=== PATIENT | female | born 1950 | race Caucasian/White ===

== ENCOUNTER 2022-03-19 07:53 | Emergency (ER) | payer MEDICARE, OTHER, SELFPAY ==
--- NOTE | ~2022-03-19 | XR_ITS ---
EXAMINATION: XR abdomen/kub 1V INDICATION: Left ureteral stone TECHNIQUE: Supine views of the abdomen were obtained on 2 radiographs. COMPARISON: CT from today FINDINGS: A 4 mm stone is seen at the expected location of the left ureterovesicular junction. There is a 7 mm stone in the lower pole of the right kidney. Embolization clips are noted in the left upper quadrant. There are also surgical changes at the level of the stomach. IMPRESSION: 1. 4 mm stone at the expected location of the left ureterovesicular junction. 2. Right nephrolithiasis. Reviewed, dictated and finalized at location A.
--- NOTE | ~2022-03-19 | CT_ITS ---
EXAMINATION: CT brain wo con DATE: 03/19/2022 08:38 INDICATION: Dizziness. TECHNIQUE: Computed tomography (CT) of the head was performed without intravenous contrast. The mA wa s adjusted according to patient size. Iterative reconstruction technique was employed. The dose-lengt h product was 605.33 mGy-cm. COMPARISON: None FINDINGS: There is an old infarct in right frontoparietal region. There is no intracranial hemorrhage , acute infarction, or abnormal intracranial mass lesion. The ventricles are normal in size. There ar e likely changes of ocular lens replacement surgeries. The mastoid air cells are normal. IMPRESSION: 1. 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 Reviewed, dictated and finalized at location A.
--- NOTE | ~2022-03-19 | CT_ITS ---
EXAMINATION: CT abdomen pelvis wo con DATE: 03/19/2022 08:38 INDICATION: Left flank pain and hematuria TECHNIQUE: Computed tomography (CT) of the abdomen and pelvis was performed without intravenous contr ast. Automated exposure control and iterative reconstruction technique were employed. The dose-length product was 151.70 mGy-cm. COMPARISON: 09/01/2013 FINDINGS: At least moderate severity emphysema at the lung bases. Visualized inferior heart is normal. Atherosc lerotic coronary artery calcification. Minimal pericardial effusion. No pleural effusion. Postoperati ve changes of prior gastric bypass procedure including several surgical clips in the region of the ga stroesophageal junction and anterior to the neck of the pancreas. Surgical clips versus suture lines along the anterior margin of the liver and dehiscence of the subcutaneous fat overlying the midline s urgical wound at the upper abdomen. There are also few embolization coils at the hilum of the spleen which appears decreased in size and with a more irregular contour than on the prior study which may b e related to prior trauma, surgery or infarct. Calcified gallstones in the normal gallbladder with no wall thickening or pericholecystic inflammatory stranding to suggest acute cholecystitis. Liver, askew creas and bilateral adrenal glands are normal. 4 mm obstructing stone at the left ureterovesicular ju nction with mild left hydroureteronephrosis. 6 x 4 mm nonobstructing stone at the lower pole of the r ight kidney. Likely atherosclerotic calcification the fat along side the bilateral renal pelvises. Bl adder is normal. The uterus is not identified and has likely been surgically resected. Scattered c olonic diverticula without adjacent inflammatory change to suggest diverticulitis. No bowel obstructi on. No free intraperitoneal gas or fluid. No pathologically enlarged abdominal or pelvic lymphadenopa thy.. There is calcified atherosclerosis of the aorta and many of the other arteries. Mild thoracolum bar dextrocurvature with moderate to severe lumbar spondylosis. IMPRESSION: 1. Bilateral nephrolithiasis with 4 mm obstructing stone at the left ureterovesicular junction with m ild left hydroureteronephrosis. 2. Diverticulosis. 3. Postoperative changes in the abdomen and pelvis as detailed above. 4. Emphysema. Reviewed, dictated and finalized at location B. IMPRESSION: 1. Bilateral nephrolithiasis with 4 mm obstructing stone at the left ureteroves icular junction with mild left hydroureteronephrosis. 2. Diverticulosis. 3. Postoperative changes in the abdomen and pelvis as detailed above. 4. Emphysema.
--- NOTE | ~2022-03-19 | XR_ITS ---
EXAMINATION: XR chest 2V DATE: 03/19/2022 08:46 INDICATION: Weakness. Left flank pain. TECHNIQUE: Frontal and lateral views of the chest were obtained. COMPARISON: Chest 2 views 07/06/2013, CT abdomen and pelvis 03/19/2022 FINDINGS: The lungs are hyperexpanded, consistent with emphysema. No pleural effusion or pneumothorax . The heart size is normal. Pectus carinatum is noted. There are embolization coils in left upper chel drant. IMPRESSION: 1. Emphysema. Reviewed, dictated and finalized at location A. IMPRESSION: 1. Emphysema.
[2022-03-19 07:59] VITALS: BP 144/63; PULSE 86; RESP 16; TEMP 36.6; O2SAT 98
--- NOTE | 2022-03-19 08:09 | ECG_ITS ---
Measurements Intervals [place] Rate: 67 P: 80 WI: 148 QRS: 79 QRSD: 89 T: 70 QT: 411 QTc: 435 Interpretive Statements SINUS RHYTHM POOR R-WAVE PROGRESSION NO PREVIOUS ECG AVAILABLE FOR COMPARISON Electronically Signed On 03-19-2022 15:19:49 CDT by Liam Jimenez M.D.
[2022-03-19] MEDS: SODIUM CHLORIDE 0.9% IV 500 ML 999 ML IV CONT (08:16)
[2022-03-19] MEDS: ONDANSETRON INJ 4 MG/2 ML VIAL IV PUSH (08:16)
[2022-03-19] MEDS: MECLIZINE HCL 12.5 MG TABLET PO (08:16)
--- NOTE | 2022-03-19 08:21 | ED.BACK ---
HPI - Back Pain/Injury General Chief Complaint: Back Pain/Injury Stated Complaint: kidney pain Time Seen by Provider: 03/19/22 07:56 Source: patient, family and RN notes reviewed Mode of arrival: ambulatory Limitations: no limitations History of Present Illness HPI Narrative: This is a 71 year old female who presents for evaluation of left flank pain. Patient states she received her flu vaccination on Thursday. She has not felt well since Thursday. She has been having left flank pain that has gradually worsened with nausea. She also noticed blood when she wipes after urinating. She denies blood when she wipes after she has bowel movement . She denies fever or chills. She does report intermittent vertigo for weeks. She was diagnosed with ear infection at an urgent care after being evaluated for vertigo. She is complaining of spinning with movement now. She denies ear ache, rining her her ears or URI symptoms. Related Data Home Medications Medication Instructions Recorded Confirmed citalopram 20 mg tablet mg 03/19/22 lorazepam 0.5 mg tablet mg 03/19/22 Allergies Allergy/AdvReac Type Severity Reaction Status Date / Time SEAFOOD Allergy Unknown Anaphylaxis Uncoded 03/19/22 08:07 Review of Systems Review of Systems: All systems reviewed & are unremarkable except as noted in HPI and below Constitutional: Constitutional: Denies chills, Reports fatigue and Denies fever(s) Eyes: Eyes: Denies change in vision ENT: Reports vertigo, Denies nasal congestion and Denies sore throat Cardiovascular: Cardiovascular: Denies chest pain Respiratory: Respiratory: Denies chest congestion and Denies cough Gastrointestinal: Gastrointestinal: Denies diarrhea, Reports nausea and Denies vomiting Genitourinary: Genitourinary: Reports hematuria and Reports flank pain Musculoskeletal: Musculoskeletal: Reports back pain [facility] Past Medical History Medical History (Updated 03/19/22 @ 10:44 by Carito Moctezuma MD) Anxiety Peptic ulcer disease Surgical History Surgical History (Updated 03/19/22 @ 08:53 by Carito Moctezuma MD) History of appendectomy History of Alex-en-Y gastric bypass Social History Social History (Updated 03/19/22 @ 08:53 by Carito Moctezuma MD) Smoking status: Never smoker Alcohol intake: never Exam Const: General: alert Nutritional Appearance: thin Orientation/consciousness: patient oriented x3 Limitations: no limitations HENMT: Head: normal to inspection Ears: external ears normal and TM's normal bilaterally Face and sinus: normal facial exam Teeth and gingiva: dentition normal Throat: posterior oropharynx normal and uvula midline Eyes: Conjunctivae: conjunctivae normal Pupils: Equal, round and reactive pupils present EOM: EOMs intact bilaterally Chest: Chest palpation & inspection: normal inspection of the chest Resp: Effort & Inspection: normal respiratory effort Auscultation: clear to auscultation bilaterally Cardio: Rate: regular rate Rhythm: regular rhythm Heart sounds: no murmurs GI: GI Palp: Yes Soft to palpation, Yes Tenderness to palpation present (GI) (LUQ), No Guarding due to palpation present (GI) and No Rigid due to palpation Auscultation: normal bowel sounds Back/Spine/Pelvis: Back: no CVA tenderness Skin: General skin exam: normal color Rashes: no rashes Wounds: no wounds Neuro: General: patient oriented x3, moves all extremities and CN's II-XI intact bilaterally Cranial nerves: Yes Nystagmus not present Speech: normal speech Gait exam (Neuro): Normal gait present Extrem: General: normal to inspection Psych: Mental Status: mental status grossly normal Course Reevaluation(s) Reevaluation #1: Patient states she feels better and she would like to go home. I discussed diagnosed and follow up . She was given return precautions. I discussed labs and case with Dr. Neal of urology. HE agrees patient can go home with pain medications and fl
[2022-03-19 08:28] VITALS: PULSE 74
[2022-03-19 08:39] LABS: Alanine Aminotransferase 24 U/L (6-35); Albumin Level 4.5 g/dL (3.5-5.1); Alkaline Phosphatase 121 U/L (38-126); Anion Gap 11 mmol/L (8-16); Aspartate Amino Transferase 37 U/L (14-36); Bilirubin,Total 1.3 mg/dL (0.2-1.3); Blood Urea Nitrogen 31 mg/dL (7-17); Calcium 9.3 mg/dL (8.4-10.2); Carbon Dioxide 22 mmol/L (22-30); Chloride 104 mmol/L (98-107); Estimated CRCL calculation 23 ml/min; Estimated Glomerular Filt Rate 40; Glucose 95 mg/dL (65-110); Lipase 61 U/L (23-300); Potassium 4.7 mmol/L (3.4-5.0); Sodium 137 mmol/L (137-145)
[2022-03-19 08:40] LABS: Basophils Absolute Auto 0.1 K/mm3 (0.0-0.1); Basophils Percent Auto 0.4 % (0.2-1.2); Eosinophils Absolute Auto 0.5 K/mm3 (0-0.3); Hematocrit 38.4 % (37.0-47.0); Hemoglobin 13.2 g/dL (12.0-15.0); Immature Granulocyte Absolute 0.47 K/mm3 (0.00-0.031); Immature Granulocyte Percent A 3.1 % (0-0.5); Immature Platelet Fraction Pct 24.5 % (0.9-11.2); Lymphocytes Absolute Auto 0.96 K/mm3 (0.9-3.2); Lymphocytes Percent Auto 6.3 % (18.3-44.2); Mean Corpuscular HGB Conc 34.4 g/dl (32-36); Mean Corpuscular Hemoglobin 35.6 pg (26-34); Mean Corpuscular Volume 103.5 fl (80-100); Monocytes Absolute Auto 1.4 K/mm3 (0.1-0.6); Neutrophils Absolute Auto 11.9 K/mm3 (1.3-6.7); Neutrophils Percent Auto 78.2 % (45.5-73.1); Platelet Count Result 47 k/mm3 (150-375); Red Blood Count 3.71 M/mm3 (4.2-5.4); Red Cell Distribution Width 15.6 % (11.5-14.5); White Blood Count 15.2 K/mm3 (4.5-10.0)
[2022-03-19 08:50] LABS: Platelet Estimate Decreased (Adequate)
[2022-03-19 08:51] LABS: Acanthocytes 1+ (NORMAL); Anisocytosis 2+ (NORMAL); Helmet Cells 1+ (NORMAL); Ovalocytes 2+ (NORMAL); Tear Drop Cells 1+ (NORMAL)
[2022-03-19 08:52] LABS: Schistocytes None Seen (NORMAL)
[2022-03-19 08:54] LABS: Add Urine Microscopic? YES; Appearance Urine Clear (Clear); Bilirubin Urine Negative (Negative); Blood Urine 2+ (Negative); Color Urine Yellow (Yellow); Glucose Urine UA Negative (Negative); Ketones Urine Negative (Negative); Leukocyte Esterase Ur Negative LEU/UL (Negative); Mucus Urine Rare /lpf; Nitrate Urine Negative (Negative); Protein Urine Negative (Negative); Specific Grav Ur 1.014 (1.001-1.035); Squamous Epithelial Cell Urine Rare /hpf (Few); Urobilinogen Urine Negative mg/dL (<2.0); WBC Urine 0-3 /hpf
[2022-03-19] MEDS: MORPHINE SULFATE (*CRX) 2 MG/ML INJ IV PUSH (09:51)
== END 2022-03-19 10:58 | disposition home or self-care (01) ==
PROVIDERS: Emergency Provider General Practice; PCP Family Medicine
DX: N13.2 Hydronephrosis with renal and ureteral calculous obstruction (principal); R42 Dizziness and giddiness; F41.9 Anxiety disorder, unspecified; Z87.11 Personal history of peptic ulcer disease; Z98.84 Bariatric surgery status; K57.90 Diverticulosis of intestine, part unspecified, without perforation or abscess without bleeding; J43.9 Emphysema, unspecified; R94.31 Abnormal electrocardiogram [ECG] [EKG]
CPT/HCPCS: 36415; 70450; 71046; 74018; 74176; 80053; 81001; 83690; 85025; 85055; 93005; 96361; 96365; 96375; 99284; A9270; J0131; J2270; J2405; J7040

== ENCOUNTER 2022-08-16 01:22 | Inpatient (IN) | payer MEDICARE, OTHER, SELFPAY ==
[2022-08-16] VITALS (39 sets, daily range): BP systolic 98–123; BP diastolic 48–65; PULSE 84–117; RESP 16–29; TEMP 36.6–36.7; O2SAT 84–100; BMI 13.9
--- NOTE | ~2022-08-16 | XR_ITS ---
EXAMINATION: XR chest 1V portable DATE: 08/16/2022 03:24 INDICATION: Shortness of breath TECHNIQUE: frontal view of the chest was obtained. COMPARISON: Chest radiograph dated 03/19/2022 FINDINGS: Mild right apical pleural-parenchymal scarring. New increased interstitial pattern with bronchial wal l thickening in the left perihilar and lower lung zones. No focal airspace consolidation, pleural eff usion or pneumothorax. The cardiomediastinal silhouette is normal. Surgical clips in the upper abdome n. Mild lumbar dextrocurvature with mild spondylosis. IMPRESSION: 1. Increased interstitial opacities with bronchial wall thickening in the left perihilar and lower trang ng zones which could represent bronchitis/early pneumonia, asymmetric mild pulmonary edema or reactiv e airway disease/asthma. Reviewed, dictated and finalized at location A. BED OWNER OPERATOR IMPRESSION: 1. Increased interstitial opacities with bronchial wall thickening in the left perihilar and lower lung zones which could represent bronchitis/early pneumonia , asymmetric mild pulmonary edema or reactive airway disease/asthma.
--- NOTE | ~2022-08-16 | CT_ITS ---
EXAMINATION: CT abdomen pelvis wo con DATE: 08/16/2022 03:21 INDICATION: Right flank pain TECHNIQUE: Computed tomography (CT) of the abdomen and pelvis was performed without intravenous contr ast. Automated exposure control and iterative reconstruction technique were employed. The dose-length product was 158.80 mGy-cm. COMPARISON: CT dated 03/19/2022 FINDINGS: Emphysema. And new bronchial dilation with wall thickening and associated tree-in-bud opacities in th e visualized lingula, right middle and bilateral lower lobes consistent with pneumonia. Heart size is normal. Small pericardial effusion. Atherosclerotic coronary artery calcific lesion. Mild pectus exc avatum. Postoperative changes at the gastroesophageal junction metallic likely embolization coils at the splenic hilum. Liver, pancreas and bilateral adrenal glands are normal. Several gallstones within the gallbladder which frankly dilated and without wall thickening or pericholecystic inflammatory st randing to suggest acute cholecystitis. 8 mm nonobstructing stone at a lower pole calyx of the right kidney. Atherosclerotic calcification is at the bilateral renal estuardo. Bladder is normal. The uterus i s not identified and has likely been surgically resected. Likely right hemicolectomy with ileocolic a nastomosis in the central and lower abdomen. No dilated bowel to suggest obstruction.. No free intrap eritoneal gas or fluid. No pathologically enlarged abdominal or pelvic lymphadenopathy. There is calc ified atherosclerosis of the aorta and bilateral iliac arteries. Chronic postoperative large defect i n the midline anterior abdominal wall fat. Mild thoracolumbar dextrocurvature with moderate to severe lumbar spondylosis. IMPRESSION: 1. Bronchial wall thickening and dilation with tree-in-bud opacities in bilateral lower lungs consist ent with pneumonia. 2. 8 mm nonobstructing right renal stone. 3. Cholelithiasis. Reviewed, dictated and finalized at location A. CUTTER IMPRESSION: 1. Bronchial wall thickening and dilation with tree-in-bud opacities in bilater al lower lungs consistent with pneumonia. 2. 8 mm nonobstructing right renal stone. 3. Cholelithiasis.
--- NOTE | 2022-08-16 02:28 | ECG_ITS ---
Measurements Intervals [place] Rate: 95 P: 86 [place]: 131 QRS: 83 QRSD: 88 T: 72 QT: 350 QTc: 440 Interpretive Statements SINUS RHYTHM RIGHT ATRIAL ENLARGEMENT LEFT ATRIAL ENLARGEMENT BORDERLINE R WAVE PROGRESSION, ANTERIOR LEADS BORDERLINE ST ABNORMALITY- INFERIOR LEADS BASELINE ARTIFACT- I, AVL, V4-V6 COMPARED TO ECG 03/19/2022 08:26:16 NO SIGNIFICANT CHANGES Electronically Signed On 08-16-2022 6:56:14 CONSERVATION ASSISTANT by Qasim Quispe D.O.
[2022-08-16] MEDS: ONDANSETRON INJ 4 MG/2 ML VIAL IV PUSH ×2 (02:41→05:23)
[2022-08-16] MEDS: MORPHINE SULFATE (*CRX) 4 MG/ML INJ IV PUSH (02:42)
[2022-08-16] MEDS: IPRATROPIUM BR 0.02% INH SOLN 0.5 MG/2.5 ML VIAL INHALATION ×5 (02:47→19:35)
[2022-08-16] MEDS: ALBUTEROL SULFATE NEB 2.5 MG/3 ML INH INHALATION ×5 (02:47→19:35)
[2022-08-16 02:53] LABS: Basophils Absolute Auto 0.1 K/mm3 (0.0-0.1); Basophils Percent Auto 0.8 % (0.2-1.2); Eosinophils Absolute Auto 0.1 K/mm3 (0-0.3); Eosinophils Percent Auto 0.5 % (0-4.4); Hemoglobin 12.5 g/dL (12.0-15.0); Immature Granulocyte Absolute 0.26 K/mm3 (0.00-0.031); Immature Granulocyte Percent A 2.5 % (0-0.5); Immature Platelet Fraction Pct 20.3 % (0.9-11.2); Lymphocytes Absolute Auto 0.75 K/mm3 (0.9-3.2); Lymphocytes Percent Auto 7.1 % (18.3-44.2); Mean Corpuscular HGB Conc 34.7 g/dl (32-36); Mean Corpuscular Hemoglobin 35.3 pg (26-34); Mean Corpuscular Volume 101.7 fl (80-100); Mean Platelet Volume 13.9 fl (7.4-10.4); Monocytes Absolute Auto 1.2 K/mm3 (0.1-0.6); Monocytes Percent Auto 11.4 % (2.6-8.5); Neutrophils Absolute Auto 8.2 K/mm3 (1.3-6.7); Neutrophils Percent Auto 77.7 % (45.5-73.1); Platelet Count Result 111 k/mm3 (150-375); Red Blood Count 3.54 M/mm3 (4.2-5.4); Red Cell Distribution Width 16.5 % (11.5-14.5); White Blood Count 10.6 K/mm3 (4.5-10.0)
[2022-08-16 03:01] LABS: Prothrombin Time 13.1 Seconds (11.1-14.7)
[2022-08-16 03:05] LABS: Lactic Acid Reflex 1.2 mmol/L (0.7-2.0)
[2022-08-16 03:15] LABS: Alanine Aminotransferase 19 U/L (6-35); Albumin Level 3.9 g/dL (3.5-5.1); Alkaline Phosphatase 77 U/L (38-126); Anion Gap 6 mmol/L (8-16); Aspartate Amino Transferase 33 U/L (14-36); Bilirubin,Total 0.8 mg/dL (0.2-1.3); Blood Urea Nitrogen 20 mg/dL (7-17); Calcium 8.9 mg/dL (8.4-10.2); Carbon Dioxide 26 mmol/L (22-30); Chloride 98 mmol/L (98-107); Estimated CRCL calculation 50 ml/min; Estimated Glomerular Filt Rate > 60; Glucose 111 mg/dL (65-110); Lipase 25 U/L (23-300); Magnesium 1.8 mg/dL (1.6-2.3); Potassium 4.5 mmol/L (3.4-5.0); Sodium 130 mmol/L (137-145)
[2022-08-16 03:17] LABS: Troponin I 0.013 ng/mL (0.000-0.034)
--- NOTE | 2022-08-16 03:27 | ED.GENADULT ---
HPI - General Adult General Chief complaint: Urogenital-Female Stated complaint: Right flank pain, hx kidney stones Time Seen by Provider: 08/16/22 02:08 History of Present Illness HPI narrative: Patient is a 49-year-old female that presents the emergency department with chief complaint of flank pain and shortness of breath. Patient reports that she has history of kidney stones and reports that she started having flank pain for the last couple days and reports its been getting progressively worse incidentally the patient also reports the last several weeks has been having increasing shortness of breath. Patient reports has never been diagnosed with COPD but does report that she did previously smoke and quit smoking fairly recently. Patient denies fever reports that she has had a chronic dry cough patient denies chest pain patient reports symptoms are not improved by anything nor they worsened by anything. Related Data Home Medications Medication Instructions Recorded Confirmed citalopram 20 mg tablet mg 03/19/22 lorazepam 0.5 mg tablet mg 03/19/22 Allergies Allergy/AdvReac Type Severity Reaction Status Date / Time SEAFOOD Allergy Unknown Anaphylaxis Uncoded 08/16/22 01:32 Review of Systems Review of Systems: A 10 system review of systems was completed on the patient and is negative except for what is stated in the HPI. Nursing and ancillary documentation was reviewed. [facility] Past Medical History Medical History Anxiety Peptic ulcer disease Surgical History Surgical History History of appendectomy History of Alex-en-Y gastric bypass Social History Social History Smoking status: Never smoker Alcohol intake: never Exam Narrative: GENERAL: Well-appearing, well-nourished, and in no acute distress. HEAD: Normocephalic, atraumatic. EYES: PERRLA and EOMI. ENT: Nares clear, no rhinorrhea or epistaxis. Mucous membranes moist. NECK: Supple. CHEST: Clear to auscultation. No respiratory distress. HEART: Regular rate and rhythm. No murmur heard. Normal peripheral pulses. ABDOMEN: Soft, nontender, nondistended, normal active bowel sounds. Large scar present on the abdomen from previous surgeries EXTREMITIES: Normal range of motion. No edema. SKIN: Warm, dry, no rash. NEURO: No focal deficits. Alert and oriented x3. PSYCH: Normal mood and affect. Course Vital Signs Vital signs: Vital Signs Temperature 36.7 C 08/16/22 01:29 Pulse Rate 117 H 08/16/22 01:29 Respiratory Rate 20 08/16/22 01:29 Blood Pressure 103/56 L 08/16/22 01:29 Pulse Oximetry 91 08/16/22 01:29 Oxygen Delivery Room Air 08/16/22 01:29 Temperature 36.6 C 08/16/22 06:36 Pulse Rate 93 08/16/22 06:36 Respiratory Rate 24 H 08/16/22 06:36 Blood Pressure 114/57 L 08/16/22 06:36 Pulse Oximetry 93 08/16/22 06:36 Oxygen Delivery Nasal Cannula 08/16/22 04:02 Oxygen Flow Rate 3 08/16/22 04:02 Medical Decision Making [facility] Narrative Medical decision making narrative: Differential diagnosis includes intra-abdominal infection, kidney stones, COPD exacerbation, pneumothorax pneumonia Patient was moderately tachypneic upon arrival and was saturating down to 88 to 89% on room air which would improve with [address] scan of the abdomen pelvis showed no acute abnormality in the abdomen did show tree-in-bud appearance and the lung bases also evidence of emphysema. Laboratory studies were obtained which showed a white blood cell count of 10.6 electrolytes showed a sodium of 130 and a BUN of 20 and a creatinine of 0.5 troponin was less than 0.012 procalcitonin is 3.4 urinalysis showed 0-5 white blood cells in the urine and the patient was negative for COVID and influenza Chest x-ray interpreted by me showed evidence of
[2022-08-16 04:05] LABS: Bacteria Urine None Seen /hpf; Bilirubin Urine Negative (Negative); Blood Urine 3+ (Negative); Color Urine Dark Yellow (Yellow); Glucose Urine UA Negative (Negative); Ketones Urine 2+ mg/dL (Negative); Leukocyte Esterase Ur Negative LEU/UL (Negative); Nitrate Urine Negative (Negative); Protein Urine 1+ mg/dL (Negative); RBC Urine >100 /hpf (0-2); Specific Grav Ur 1.033 (1.001-1.035); Squamous Epithelial Cell Urine Occasional /hpf (Few); WBC Urine 0-5 /hpf
[2022-08-16 04:06] LABS: Influenza A QL RT-PCR Negative (Negative); Influenza B QL RT-PCR Negative (Negative); SARS-CoV-2 RNA PCR Negative
[2022-08-16 04:08] LABS: Appearance Urine Cloudy (Clear)
[2022-08-16 04:09] LABS: Add Urine Microscopic? YES
[2022-08-16 05:05] LABS: Procalcitonin 3.4 ng/mL
[2022-08-16 06:01] LABS: Troponin I < 0.012 ng/mL (0.000-0.034)
[2022-08-16] MEDS: methylPREDNISolone SOD SUCC 125 MG VIAL IV PUSH (06:35)
--- NOTE | 2022-08-16 07:44 | PM.IMHP ---
H&P: HPI History of Present Illness Date/Time: 08/16/22 07:44 Chief Complaint: Flank pain Narrative: Isidro Kaufman is a 71 yo female with COPD, anxiety, and prior history of kidney stones. She presented to the ED for evaluation of right flank pain. She reported sudden difficulty breathing this morning upon arising. She reports productive cough with phlegm type sputum and dyspnea at rest and with exertion. She denies fever, chills, diaphoresis, chest pain, abdominal pain, nausea, vomiting, anorexia, dizziness, or myalgias. She denies known sick contacts or changes in medications. She does endorse being forgetful at times and denies known lung disease. She does report smoking for 20-30 years and recently picking the habit back up with approximately 2 cigarettes per day. In the ED, vitals were HR 117, RR 24, BP 103/56, temp 36.7C, and spO2 dropped 84% on room air. Lab work was significant for mildly elevated WBC 10.6 with bandemia, sodium 130, procalcitonin 3.4, lactic acid 1.2 and otherwise unremarkable CBC or CMP. Influenza A/B and COVID19 were negative. UA was unremarkable. Chest x-ray shows increased interstitial opacities with bronchial wall thickening in the perihilar and lower lung raymundo suggestive of early pneumonia or bronchitis. CT abd/pelvis showed 8 mm nonobstructing right renal stone, tree-in-bud opacities suggestive of pneumonia and cholelithiasis without cholecystitis. She was treated with duonebs x2, morphine 4 mg IV x1, Zofran 4 mg IV x1, solumedrol 125 mg IV x1, IV Rocephin 1 gram and Azithromycin 500 mg IV x1. She was referred for observation and management of acute COPD exacerbation. Review of Systems Review of Systems: All systems reviewed & are unremarkable except as noted in HPI and below PMFSH Past Medical History Medical History (Updated 08/16/22 @ 12:47 by Gabriela Hess APRN) Anxiety COPD (chronic obstructive pulmonary disease) Gastric perforation Kidney stones Peptic ulcer disease Surgical History Surgical History (Updated 08/16/22 @ 12:47 by Gabriela Hess APRN) History of appendectomy History of Alex-en-Y gastric bypass S/P gastric surgery reconstructive surgery following perforation Family History Family History Father Cerebrovascular accident Myocardial infarction Social History Social History (Updated 08/16/22 @ 12:49 by Gabriela Hess APRN) Smoking status: Current every day smoker Tobacco type: cigarettes Additional smoking assessment comments: 20-30 pack year smoking history, restarted smoking recently 2 cigarette/day Alcohol intake: never Drinks per week: 0 Substance use: never Lack of Transportation: No Lack of Food: Never True Current Housing: I Have Housing Concerned About Future Housing: No Difficulty Paying Gas/Electric Bills: No Difficulty Paying for Meds: No Currently Unemployed: No Education: High School Diploma/GED Difficulty w/ Childcare or Family Care: No Living arrangements: with family Additional living arrangements comments: with spouse Occupation/Education: retired Additional occupation/education comments: Formerly worked in a [employer]. Spiritual care concerns: No Meds Home Medications and Allergies Home Medications Medication Instructions Recorded Confirmed Type citalopram 20 mg tablet 20 mg PO BID 03/19/22 08/16/22 History lorazepam 0.5 mg tablet 0.5 mg PO DAILY PRN Anxiety 03/19/22 08/16/22 History azelastine 0.05 % eye drops 1 drp EACH EYE DAILY 08/16/22 08/16/22 History Allergies Allergy/AdvReac Type Severity Reaction Status Date / Time SEAFOOD Allergy Unknown Anaphylaxis Uncoded 08/16/22 01:32 Vital Signs Vital Signs - 24 hr 08/16/22 01:29 08/16/22 02:47 08/16/22 02:46 Temperature 98.1 F Pulse Rate 117 H 84 85 Respiratory Rate 20 24 H 21 H Blood Pressure 103/56 L 117/65 Pulse Oximetry 91 99 Oxygen Delivery Room A
[2022-08-16] MEDS: FAMOTIDINE 20 MG TABLET PO ×2 (09:48→20:43)
[2022-08-16] MEDS: ACETAMINOPHEN 325 MG TABLET 650 MG PO (14:36)
[2022-08-16] MEDS: methylPREDNISolone SOD SUCC 125 MG VIAL 60 MG IV PUSH (14:37)
[2022-08-16] MEDS: CITALOPRAM HYDROBROMIDE 20 MG TABLET PO (14:37)
[2022-08-16] MEDS: LORazepam INJ (*CRX) 2 MG/ML VIAL 0.5 MG IV PUSH (20:43)
[2022-08-16] MEDS: methylPREDNISolone SOD SUCC 40 MG VIAL IV PUSH (20:43)
[2022-08-17] VITALS (15 sets, daily range): BP systolic 106–136; BP diastolic 45–59; PULSE 72–92; RESP 16–20; TEMP 36.2–36.3; O2SAT 93–95
[2022-08-17] MEDS: ALBUTEROL SULFATE NEB 2.5 MG/3 ML INH INHALATION ×4 (03:14→19:58)
[2022-08-17] MEDS: IPRATROPIUM BR 0.02% INH SOLN 0.5 MG/2.5 ML VIAL INHALATION ×4 (03:14→19:58)
[2022-08-17 05:46] LABS: Basophils Percent Auto 0.2 % (0.2-1.2); Eosinophils Percent Auto 0.1 % (0-4.4); Hematocrit 30.2 % (37.0-47.0); Hemoglobin 10.3 g/dL (12.0-15.0); Immature Granulocyte Absolute 0.26 K/mm3 (0.00-0.031); Immature Granulocyte Percent A 1.6 % (0-0.5); Lymphocytes Absolute Auto 0.85 K/mm3 (0.9-3.2); Lymphocytes Percent Auto 5.3 % (18.3-44.2); Mean Corpuscular HGB Conc 34.1 g/dl (32-36); Mean Corpuscular Hemoglobin 34.1 pg (26-34); Mean Platelet Volume 12.5 fl (7.4-10.4); Monocytes Percent Auto 5.9 % (2.6-8.5); Neutrophils Absolute Auto 13.9 K/mm3 (1.3-6.7); Neutrophils Percent Auto 86.9 % (45.5-73.1); Platelet Count Result 160 k/mm3 (150-375); Red Blood Count 3.02 M/mm3 (4.2-5.4)
[2022-08-17 06:00] LABS: Anion Gap 3 mmol/L (8-16); Blood Urea Nitrogen 27 mg/dL (7-17); Calcium 8.7 mg/dL (8.4-10.2); Carbon Dioxide 30 mmol/L (22-30); Chloride 98 mmol/L (98-107); Estimated CRCL calculation 37 ml/min; Estimated Glomerular Filt Rate > 60; Glucose 163 mg/dL (65-110); Potassium 3.9 mmol/L (3.4-5.0); Sodium 131 mmol/L (137-145)
[2022-08-17] MEDS: methylPREDNISolone SOD SUCC 40 MG VIAL IV PUSH ×3 (06:16→21:31)
--- NOTE | 2022-08-17 07:54 | PM.IMPN ---
Progress Note: A&P Assessment and Plan (1) Sepsis: Code(s): A41.9 - Sepsis, unspecified organism Status: Acute Assessment and Plan: In the ED, HR 117, RR 24, BP 103/56, spO2 84% room air, WBC 10.6 with bandemia, procalcitonin 3.4 and imaging suggestive of pneumonia. Lactic acid 1.4. Continue antibiotics Monitor hemodynamics. Appears euvolemic. (2) COPD exacerbation: Code(s): J44.1 - Chronic obstructive pulmonary disease with (acute) exacerbation Status: Acute Assessment and Plan: continue scheduled duonebs Q6 hours IV solumedrol 40mg Q8 hours, wean to prednisone tomorrow morning. Continue antibiotics Wean oxygen as tolerated to keep sats>90% Home O2 evaluation if unable to wean from oxygen Discharge on maintenance inhalers. (3) Pneumonia: Code(s): J18.9 - Pneumonia, unspecified organism Status: Acute Assessment and Plan: bilateral opacities and bronchial wall thickening. Bandemia noted. Procalcitonin 3.4. Continue Azithromcyin 500 mg IV Q24 hours and Rocephin 1 gram IV Q24. Transition to oral antibiotics in the morning. Trend CBC and procalcitonin Transition to oral antibiotics for 5-7 days when clinically improving. (4) Flank pain, acute: Code(s): R10.9 - Unspecified abdominal pain Status: Acute Assessment and Plan: Likely secondary to pneumonia. Continue supportive care. (5) Nephrolithiasis: Code(s): N20.0 - Calculus of kidney Status: Acute Assessment and Plan: 8 mm nonobstructing stone right kidney. No CVA tenderness on exam. Strain urine. (6) Malnutrition following gastrointestinal surgery: Code(s): K91.2 - Postsurgical malabsorption, not elsewhere classified Status: Acute Assessment and Plan: BMI 14 kg/m2. Regular diet with Ensure BID. Consult Faculty Head for nutrition assessment and recommendations. Plan CODE STATUS: FULL CODE Disposition: from home Diet: Regular GI prophylaxis: famotidine BID Antibiotic: day 2 of 7 Time Spent With Patient Time: 30 minutes time spent with patient assessment, patient education, review of labs, vitals and nursing documentation. All questions answered to the best of my ability. Subjective Date/time seen: 08/17/22 07:54 Interval history: She c/o dyspnea with exertion and after eating occasionally. She has more mucous today that is white. No fever, chills, diaphoresis, rigors, chest pain, or dizziness. Review of Systems Review of Systems: All systems reviewed & are unremarkable except as noted in HPI and below Exam Narrative: General: Thin, frail older adult female, appears older than stated age. No acute respiratory distress.? Temp 98F oral, HR 94, RR 20, BP 102/48 , spO2 96% on 3L O2 nasal cannula, BMI 14 kg/m2 Neuro: Awake, alert and oriented x3, clear speech. cooperative. No focal deficit. Gait not tested. Skin: Skin fair, warm, dry and intact without rashes or lesions. Fair turgor.?Large, oval irregular, healed midline surgical scar. HEENT: Normocephalic. Sclera is non-icteric. Pupils equal and round. Oral mucosa pink and moist. Neck: Supple. No JVD. Heart: S1 and S2 regular rate and rhythm. No murmurs, gallops, or rubs auscultated. Chest: Respirations even and unlabored. Lung sounds diminished bilaterally. No intercostal muscle use. Abdomen: Soft, flat and non-tender to palpation.? Bowel sounds present in all 4 quadrants. No guarding or CVA tenderness. Extremities:? No edema, erythema or calf tenderness. Grossly normal ROM. Objective Data Vital Signs Vital Signs: Vital Signs - 24 hr 08/16/22 07:25 08/16/22 07:35 08/16/22 07:35 Temperature Pulse Rate 90 92 92 Respiratory Rate 18 20 20 Blood Pressure 117/54 L Pulse Oximetry 94 97 Oxygen Delivery Nasal Cannula Oxygen Flow Rate 3 08/16/22 07:45 08/16/22 08:25 08/16/22 13:39 Temperature Pulse Rate 90 94 87 Respiratory Rate 20 20 24 H Blood Pressure
[2022-08-17] MEDS: FAMOTIDINE 20 MG TABLET PO ×2 (10:00→21:31)
[2022-08-17] MEDS: CITALOPRAM HYDROBROMIDE 20 MG TABLET PO (10:00)
[2022-08-17] MEDS: ACETAMINOPHEN 325 MG TABLET 650 MG PO (10:02)
[2022-08-17] MEDS: guaiFENesin 12 HR 600 MG TABCR PO (21:31)
[2022-08-17] MEDS: HYDROcodone/acetaminophen (*CRX) 5-325 MG TABLET 1 TAB PO (23:51)
[2022-08-18] MEDS: IPRATROPIUM BR 0.02% INH SOLN 0.5 MG/2.5 ML VIAL INHALATION (02:16)
[2022-08-18] MEDS: ALBUTEROL SULFATE NEB 2.5 MG/3 ML INH INHALATION (02:16)
[2022-08-18 02:18] VITALS: PULSE 86; RESP 20
[2022-08-18 06:00] VITALS: BP 140/64; PULSE 82; RESP 16; TEMP 36.3; O2SAT 94
[2022-08-18 06:10] LABS: Basophils Absolute Auto 0.1 K/mm3 (0.0-0.1); Basophils Percent Auto 0.5 % (0.2-1.2); Hematocrit 30.1 % (37.0-47.0); Immature Granulocyte Absolute 0.41 K/mm3 (0.00-0.031); Immature Granulocyte Percent A 2.4 % (0-0.5); Lymphocytes Absolute Auto 0.67 K/mm3 (0.9-3.2); Mean Corpuscular HGB Conc 33.2 g/dl (32-36); Mean Corpuscular Hemoglobin 34.2 pg (26-34); Mean Corpuscular Volume 103.1 fl (80-100); Mean Platelet Volume 12.6 fl (7.4-10.4); Monocytes Absolute Auto 0.6 K/mm3 (0.1-0.6); Monocytes Percent Auto 3.8 % (2.6-8.5); Neutrophils Percent Auto 89.3 % (45.5-73.1); Platelet Count Result 236 k/mm3 (150-375); Red Blood Count 2.92 M/mm3 (4.2-5.4); Red Cell Distribution Width 16.3 % (11.5-14.5); White Blood Count 16.8 K/mm3 (4.5-10.0)
[2022-08-18 06:18] LABS: Anion Gap 4 mmol/L (8-16); Blood Urea Nitrogen 33 mg/dL (7-17); CRP 3.5 mg/dL (<1.0); Calcium 8.8 mg/dL (8.4-10.2); Carbon Dioxide 28 mmol/L (22-30); Chloride 100 mmol/L (98-107); Estimated CRCL calculation 37 ml/min; Estimated Glomerular Filt Rate > 60; Glucose 158 mg/dL (65-110); Potassium 4.3 mmol/L (3.4-5.0); Sodium 132 mmol/L (137-145)
[2022-08-18 07:03] LABS: Anisocytosis 1+ (NORMAL); Macrocytosis 1+ (NORMAL); Platelet Estimate Adequate (Adequate); Target Cells 1+ (NORMAL)
[2022-08-18 07:04] LABS: Ovalocytes 1+ (NORMAL); Schistocytes None Seen (NORMAL)
[2022-08-18 07:22] LABS: Procalcitonin 1.2 ng/mL
[2022-08-18 08:01] VITALS: RESP 20; O2SAT 94
[2022-08-18] MEDS: FAMOTIDINE 20 MG TABLET PO (08:10)
[2022-08-18] MEDS: CITALOPRAM HYDROBROMIDE 20 MG TABLET PO (08:10)
[2022-08-18] MEDS: predniSONE 20 MG TABLET 40 MG PO (08:10)
[2022-08-18] MEDS: guaiFENesin 12 HR 600 MG TABCR PO (08:10)
[2022-08-18] MEDS: UMECLIDINIUM/VILANTEROL 62.5-25 MCG ELLIPTA 1 PUFF INHALATION (09:29)
[2022-08-18 09:32] VITALS: PULSE 82; RESP 16; O2SAT 93
--- NOTE | 2022-08-18 10:13 | PM.DS ---
DS: Admitting Diagnosis Discharge Date 08/18/2022 Admitting Diagnosis Sepsis, unspecified organism Chronic obstructive pulmonary disease with (acute) exacerbation Pneumonia, unspecified organism Flank pain, acute Nephrolithiasis DS: Discharge Diagnosis Discharge Diagnosis (1) Sepsis: Code(s): A41.9 - Sepsis, unspecified organism Status: Acute Assessment and Plan: In the ED, HR 117, RR 24, BP 103/56, spO2 84% room air, WBC 10.6 with bandemia, procalcitonin 3.4 and imaging suggestive of pneumonia. Lactic acid 1.4. Continue antibiotics Appears euvolemic. Vitals monitored. (2) COPD exacerbation: Code(s): J44.1 - Chronic obstructive pulmonary disease with (acute) exacerbation Status: Acute Assessment and Plan: Patient denied known history of COPD continued scheduled duonebs Q6 hours IV solumedrol 40mg Q8 hours, wean to prednisone 08/18/22 Continued antibiotics for pneumonia. Wean oxygen as tolerated to keep sats>90% Hallway ambulation with spO2>91% on room air. Discharge on Anoro Ellipta. Outpatient PFTs recommended if not done in the past 12 months. (3) Pneumonia: Code(s): J18.9 - Pneumonia, unspecified organism Status: Acute Assessment and Plan: bilateral opacities and bronchial wall thickening. Bandemia noted. Procalcitonin 3.4. Treated with Azithromcyin 500 mg IV Q24 hours and Rocephin 1 gram IV Q24, started 08/16/22. Transition to oral antibiotics Levaquin 750 mg PO daily x5 days on 08/18/22 Trended CBC 16 but likely secondary to steroids given clinical improvement and procalcitonin decreased 1.2 Counseled on immunizations (4) Flank pain, acute: Code(s): R10.9 - Unspecified abdominal pain Status: Acute Assessment and Plan: Likely secondary to pneumonia. Continue supportive care. (5) Nephrolithiasis: Code(s): N20.0 - Calculus of kidney Status: Acute Assessment and Plan: 8 mm nonobstructing stone right kidney. No CVA tenderness on exam. Strain urine. (6) Malnutrition following gastrointestinal surgery: Code(s): K91.2 - Postsurgical malabsorption, not elsewhere classified Status: Acute Assessment and Plan: Severe protein malnutrition. BMI 14 kg/m2. Regular diet with Ensure BID. Consulted [employer] for nutrition assessment and recommendations. DS: Summary Hospital Course Reason for hospitalization: flank pain Hospital Course: Isidro Kaufman is a 71 yo female with COPD, anxiety, and prior history of kidney stones. She presented to the ED for evaluation of right flank pain. She reported sudden difficulty breathing upon arising. She had productive cough with phlegm type sputum and dyspnea at rest and with exertion. She denied fever, chills, diaphoresis, chest pain, abdominal pain, nausea, vomiting, anorexia, dizziness, or myalgias. No known sick contacts or changes in medications. She endorsed being forgetful at times and denied known lung disease. She smoked for 20-30 years and recently picked the habit back up with approximately 2 cigarettes per day. In the ED, vitals were HR 117, RR 24, BP 103/56, temp 36.7C, and spO2 dropped 84% on room air. Lab work was significant for mildly elevated WBC 10.6 with bandemia, sodium 130, procalcitonin 3.4, lactic acid 1.2 and otherwise unremarkable CBC or CMP. Influenza A/B and COVID19 were negative. UA was unremarkable. Chest x-ray shows increased interstitial opacities with bronchial wall thickening in the perihilar and lower lung raymundo suggestive of early pneumonia or bronchitis. CT abd/pelvis showed 8 mm nonobstructing right renal stone, tree-in-bud opacities suggestive of pneumonia and cholelithiasis without cholecystitis. She was treated with duonebs x2, morphine 4 mg IV x1, Zofran 4 mg IV x1, solumedrol 125 mg IV x1, IV Rocephin 1 gram and Azithromycin 500 mg IV x1. She was referred for observation and management of acute COPD exacerbation. She was jessica
[2022-08-18 12:59] VITALS: BMI 13.9
--- NOTE | 2022-08-18 13:18 | P.CDI_ITS ---
CDI Query Clarification Request severe <Gabriela Hess APRN - Last Filed: 08/19/22 21:10> Clarified Diagnosis Clarified Diagnosis: BMI 13.9 Nutritional Diagnostic Statement Severe Protein calorie Malnutrition related to inadequate protein energy intake with increased protein energy needs as evidence by inadequate oral intake for more than 1 month, significant weight loss, and noted NFPE findings for subcutaneous fat loss and muscle wasting. Please refer to the Comprehensive Nutritional assessment for more information. Please clarify severity of protein calorie malnutrition * Mild * Moderate * Severe * Other / Unspecified <Angy Cristobal RN - Last Filed: 08/18/22 13:23>
== END 2022-08-18 14:05 | disposition home or self-care (01) | DRG 871 ==
LOC: ANHED 06:43 → ANH2MED 08:18
PROVIDERS: Admitting Provider Internal Medicine; Emergency Provider Emergency Medicine; PCP Family Medicine; Visit Provider Nurse Practitioner Family
DX: A41.9 Sepsis, unspecified organism (principal); E43 Unspecified severe protein-calorie malnutrition; J18.9 Pneumonia, unspecified organism; J44.1 Chronic obstructive pulmonary disease with (acute) exacerbation; Z68.1 Body mass index [BMI] 19.9 or less, adult; K91.2 Postsurgical malabsorption, not elsewhere classified; N20.0 Calculus of kidney; F17.210 Nicotine dependence, cigarettes, uncomplicated; Z20.822 Contact with and (suspected) exposure to COVID-19; Z98.84 Bariatric surgery status
CPT/HCPCS: 36415; 71045; 74176; 80048; 80053; 81001; 83605; 83690; 83735; 84145; 84484; 85025; 85055; 85610; 85730; 86140; 87040; 87636; 93005; 94640; 96365; 96366; 96367; 96374; 96375; 96376; 99285; A9270; G0378; J0456; J0696; J2060; J2270; J2405; J2920; J2930; J7512

== ENCOUNTER 2022-08-21 03:34 | Emergency (ER) | payer MEDICARE, OTHER, SELFPAY ==
[2022-08-21] VITALS (26 sets, daily range): BP systolic 146–183; BP diastolic 57–96; PULSE 67–70; RESP 16; TEMP 36.6; O2SAT 91–100
--- NOTE | ~2022-08-21 | CT_ITS ---
CT of the Abdomen and Pelvis: Indication: Epigastric pain Technique: 2.5 mm axial scans were obtained through the abdomen and pelvis following intravenous adm inistration of 100 cc of Omnipaque 350. Dose reduction technique was used on this scan by utilizing a utomated exposure control and iterative reconstruction technique. The dose-length product (DLP) was 1 48.38 mGy-cm. COMPARISON: 08/16/2022 Findings: Scans through the lung bases demonstrate minimal patchy bibasilar airspace disease. The liver, spleen, pancreas, adrenals and left kidney are within normal limits. Cholelithiasis noted. 8 mm nonobstructing right lower pole renal stone noted. Surgical clips or coils noted near the splen ic hilum. There are extensive atherosclerotic calcifications of the aorta. No lymphadenopathy. No bowel obstruction or bowel wall thickening. There is no evidence to suggest acute appendicitis. Images through the pelvis were performed. Urinary bladder unremarkable. Patient is post hysterectomy. No pelvic mass seen. No ascites. Impression: Cholelithiasis. 8 mm nonobstructing right lower pole renal stone. Patchy airspace opacities the lung bases. Findings are consistent with acute small airways infectious process, probably minimally worsened as compared to recent prior exam. Reviewed, dictated and finalized at [facility]. Impression: Cholelithiasis. 8 mm nonobstructing right lower pole renal stone. Patchy airspace opacities the lung bases. Findings are consistent with acute sm all airways infectious process, probably minimally worsened as compared to rece nt prior exam.
[2022-08-21 04:03] LABS: Basophils Percent Auto 0.3 % (0.2-1.2); Eosinophils Absolute Auto 0.1 K/mm3 (0-0.3); Eosinophils Percent Auto 0.7 % (0-4.4); Hematocrit 32.6 % (37.0-47.0); Hemoglobin 11.1 g/dL (12.0-15.0); Immature Granulocyte Absolute 0.21 K/mm3 (0.00-0.031); Immature Granulocyte Percent A 1.9 % (0-0.5); Lymphocytes Absolute Auto 2.29 K/mm3 (0.9-3.2); Lymphocytes Percent Auto 20.4 % (18.3-44.2); Mean Platelet Volume 11.4 fl (7.4-10.4); Monocytes Absolute Auto 0.8 K/mm3 (0.1-0.6); Monocytes Percent Auto 7.3 % (2.6-8.5); Neutrophils Absolute Auto 7.8 K/mm3 (1.3-6.7); Neutrophils Percent Auto 69.4 % (45.5-73.1); Platelet Count Result 477 k/mm3 (150-375); Red Blood Count 3.26 M/mm3 (4.2-5.4); Red Cell Distribution Width 15.9 % (11.5-14.5); White Blood Count 11.2 K/mm3 (4.5-10.0)
[2022-08-21 04:23] LABS: Alanine Aminotransferase 38 U/L (6-35); Albumin Level 3.5 g/dL (3.5-5.1); Alkaline Phosphatase 41 U/L (38-126); Anion Gap 2 mmol/L (8-16); Aspartate Amino Transferase 28 U/L (14-36); Bilirubin,Total 0.6 mg/dL (0.2-1.3); Blood Urea Nitrogen 25 mg/dL (7-17); Calcium 8.8 mg/dL (8.4-10.2); Carbon Dioxide 31 mmol/L (22-30); Chloride 99 mmol/L (98-107); Estimated CRCL calculation 50 ml/min; Estimated Glomerular Filt Rate > 60; Glucose 94 mg/dL (65-110); Lipase 70 U/L (23-300); Sodium 132 mmol/L (137-145)
[2022-08-21 04:28] LABS: Platelet Estimate Increased (Adequate)
[2022-08-21 04:29] LABS: Anisocytosis 1+ (NORMAL); Macrocytosis 1+ (NORMAL); Ovalocytes 1+ (NORMAL); Schistocytes None Seen (NORMAL)
[2022-08-21] MEDS: MAG HYDROX/AL HYDROX/SIMETH 30 ML UDC PO (04:51)
[2022-08-21] MEDS: FAMOTIDINE 20 MG/2 ML VIAL IV PUSH (04:51)
[2022-08-21] MEDS: HYDROmorphone HCL INJ (*CRX) 1 MG/ML SYR 0.5 MG IV PUSH (04:51)
[2022-08-21] MEDS: SODIUM CHLORIDE 0.9% IV 2,000 ML 999 ML IV CONT (04:56)
--- NOTE | 2022-08-21 04:56 | ED.GENADULT ---
HPI - General Adult General Chief complaint: Abdominal Pain Stated complaint: abd pain Time Seen by Provider: 08/21/22 03:52 History of Present Illness HPI narrative: This is a 71-year-old female presenting ED with chief complaint of epigastric abdominal pain. It started at 3:00 p.m. yesterday while she was doing laundry. She describes as an achy pain that radiates to her back. Eight out 10 intensity and constant. Says this feels similar to when she had a kidney stone in March. Pain was improved with Tylenol there are no exacerbating symptoms. She has had nausea but no vomiting, no fevers chest pain difficulty breathing or diarrhea. 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 Last bowel movement was normal. Related Data Home Medications Medication Instructions Recorded Confirmed citalopram 20 mg tablet 20 mg PO BID 03/19/22 08/16/22 lorazepam 0.5 mg tablet 0.5 mg PO DAILY PRN Anxiety 03/19/22 08/16/22 azelastine 0.05 % eye drops 1 drp EACH EYE DAILY 08/16/22 08/16/22 Allergies Allergy/AdvReac Type Severity Reaction Status Date / Time Fish Containing Products Allergy Severe Anaphylaxis Verified 08/18/22 07:59 shellfish derived Allergy Severe Anaphylaxis Verified 08/18/22 07:59 PMFSH Past Medical History Medical History Anxiety COPD (chronic obstructive pulmonary disease) Gastric perforation Kidney stones Peptic ulcer disease Surgical History Surgical History History of appendectomy History of Alex-en-Y gastric bypass S/P gastric surgery reconstructive surgery following perforation Family History Family History Father Cerebrovascular accident Myocardial infarction Social History Social History Smoking status: Current every day smoker Tobacco type: cigarettes Additional smoking assessment comments: 20-30 pack year smoking history, restarted smoking recently 2 cigarette/day Alcohol intake: never Drinks per week: 0 Substance use: never Lack of Transportation: No Lack of Food: Never True Current Housing: I Have Housing Concerned About Future Housing: No Difficulty Paying Gas/Electric Bills: No Difficulty Paying for Meds: No Currently Unemployed: No Education: High School Diploma/GED Difficulty w/ Childcare or Family Care: No Living arrangements: with family Additional living arrangements comments: with spouse Occupation/Education: retired Additional occupation/education comments: 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 Spiritual care concerns: No Exam Narrative: APPEARANCE: No apparent distress. under weight Head: atraumatic. EYES: EOMI, NOSE: Atraumatic NECK: Trachea midline RESPIRATORY: No increased rate of breathing , coarse lung sounds in the bases CARDIOVASCULAR: RRR, no peripheral edema ABDOMINAL: Soft, nontender with no guarding or rebound. Minor tenderness in the epigastric area. Large well-healed surgical scar over the center of the abdomen. MUSCULOSKELETAl: No obvious deformities NEURO: Alert. Moving 4/4 extremities SKIN:: Warm, dry. Normal color PSYCHIATRIC: Normal affect Course Vital Signs Vital signs: Vital Signs Temperature 97.8 F 08/21/22 03:40 Pulse Rate 67 08/21/22 03:40 Respiratory Rate 16 08/21/22 03:40 Blood Pressure 178/96 H 08/21/22 03:40 Pulse Oximetry 98 08/21/22 03:40 Oxygen Delivery Room Air 08/21/22 03:40 Temperature 97.8 F 08/21/22 03:40 Pulse Rate 67 08/21/22 03:40 Respiratory Rate 16 08/21/22 03:40 Blood Pressure 178/96 H 08/21/22 03:40 Pulse Oximetry 98 08/21/22 03:40 Oxygen Delivery Room Air 08/21/22 03:40 Medical Decision Making [facility] Narrative Medical decision making narrative: -Presentation:71-year-old female with multiple ab
[2022-08-21 05:34] LABS: Appearance Urine Clear (Clear); Bacteria Urine None Seen /hpf; Bilirubin Urine Negative (Negative); Color Urine Yellow (Yellow); Glucose Urine UA Negative (Negative); Ketones Urine Negative (Negative); Leukocyte Esterase Ur Negative LEU/UL (Negative); Nitrate Urine Negative (Negative); Non Pathogenic Casts 0-2; Protein Urine Negative (Negative); Squamous Epithelial Cell Urine None seen /hpf (Few); Urobilinogen Urine 0.2 mg/dL (<2.0); WBC Urine 0-5 /hpf; pH Urine 7.5 (5.0-9.0)
[2022-08-21 06:01] LABS: Specific Grav Ur 1.071 (1.001-1.035)
[2022-08-21 06:02] LABS: Influenza A QL RT-PCR Negative (Negative); Influenza B QL RT-PCR Negative (Negative); RSV RNA, RT-PCR Negative (Negative); SARS-CoV-2 RNA PCR Negative
[2022-08-21 06:16] LABS: Add Urine Microscopic? YES
== END 2022-08-21 06:50 | disposition home or self-care (01) ==
PROVIDERS: Emergency Provider Emergency Medicine; PCP Family Medicine
DX: K80.20 Calculus of gallbladder without cholecystitis without obstruction (principal); Z20.822 Contact with and (suspected) exposure to COVID-19; J44.9 Chronic obstructive pulmonary disease, unspecified; F41.9 Anxiety disorder, unspecified; F17.210 Nicotine dependence, cigarettes, uncomplicated; Z87.442 Personal history of urinary calculi; Z87.11 Personal history of peptic ulcer disease; Z98.84 Bariatric surgery status
CPT/HCPCS: 36415; 74177; 80053; 81001; 83690; 85025; 87637; 96361; 96374; 96375; 99284; A9270; J1170; J7030; Q9967